=== PATIENT | male | born 1950 | race Caucasian/White ===

== ENCOUNTER 2021-07-17 21:56 | Inpatient (IN) | payer MEDICARE, BC ==
[~2021-07-17] VITALS: Ht 185.4 cm; Wt 129.3 kg
[~2021-07-17 21:56] MED LIST: ALDACTONE50 MG PO; ASPIRIN81 MG PO; CENTRUM SILVER1 EAC1 PO; COQ1050 MG PO; ENTRESTO 49 MG1 EACH PO; LASIX20 MG PO; LEVAQUIN750 MG PO; LOPRESSOR50 MG PO; NEURONTIN800 MG PO; OXCARBAZEPINE300 MG PO; TRILEPTAL300 MG PO; VITAMIN B-121000 MC2 SL; VITAMIN C500 M4 PO; VITAMIN D350 MC3 PO; VITRON-C TABLE1 EACH PO; WARFARIN SODIU2.5 MG PO; WARFARIN SODIUM3 MG PO; XANAX 0.25 MG0.25 MG PO; ZOCOR 40 MG TAB40 MG PO; ZYRTEC10 M3 PO
[2021-07-17 22:49] LABS: HEMOGLOBIN 13.1 gm/dl (14.0-17.5); RED BLOOD COUNT 4.15 M/UL (4.20-5.50); WHITE BLOOD COUNT 10.8 K/UL (4.5-11.0)
[2021-07-17 23:07] LABS: BUN/CREATININE RATIO 12 (0-10)
--- NOTE | 2021-07-18 02:26 | NUR ---
ATTEMPTED TO CONTACT DR GARIBAY X2 IN REGARDS TO PATIENT HOME MEDICATION LIST AND PATIENT VERBALIZED NEED FOR HIS ANXIETY MEDICATION AND TYLENOL. LEFT A VOICE MAIL AND I AM CURRENTLY AWAITING HIS RETURN CALL
[2021-07-18 04:26] LABS: BUN/CREATININE RATIO 12 (0-10)
[2021-07-18 16:02] LABS: BUN/CREATININE RATIO 11 (0-10)
[2021-07-18 22:57] LABS: BUN/CREATININE RATIO 15 (0-10)
[2021-07-19 05:59] LABS: RED BLOOD COUNT 3.86 M/UL (4.20-5.50); WHITE BLOOD COUNT 10.2 K/UL (4.5-11.0)
[2021-07-19 06:14] LABS: BUN/CREATININE RATIO 15 (0-10)
--- NOTE | 2021-07-19 21:08 | NUR ---
PHARMACY CALLED BACK AND STATES THAT THE ONLY SUB WE HAVE FOR ZOCOR IS LIPTIIOR AND PATIENT IS ALLERGIC TO THIS MEDICATION
[2021-07-20 02:12] LABS: HEMOGLOBIN 11.7 gm/dl (14.0-17.5); RED BLOOD COUNT 3.72 M/UL (4.20-5.50); WHITE BLOOD COUNT 7.8 K/UL (4.5-11.0)
[2021-07-20 04:34] LABS: BUN/CREATININE RATIO 18 (0-10)
[2021-07-20] MEDS ORDERED: LEVOFLOXACIN500 MG PO (10:54)
[2021-07-20] MEDS ORDERED: LEVOFLOXACIN750 MG PO (12:32)
== END 2021-07-20 13:03 | disposition home or self-care (01) | DRG 699 ==
LOC: ER1 21:56 → CDU 07-18 00:17 → M/S 07-18 00:17
PROVIDERS: Internal Medicine; Internal Medicine Nephrology; Physician Assistant; Physician Assistant Medical; ADMIT Internal Medicine
DX: N99.521 Infection of incontinent external stoma of urinary tract (principal); N13.6 Pyonephrosis; N30.00 Acute cystitis without hematuria; E87.1 Hypo-osmolality and hyponatremia; I50.32 Chronic diastolic (congestive) heart failure; I48.20 Chronic atrial fibrillation, unspecified; E87.2 Acidosis; Z20.822 Contact with and (suspected) exposure to COVID-19; Y84.6 Urinary catheterization as the cause of abnormal reaction of the patient, or of later complication, without mention of misadventure at the time of the procedure; E16.2 Hypoglycemia, unspecified; D64.9 Anemia, unspecified; E66.9 Obesity, unspecified; B96.1 Klebsiella pneumoniae [K. pneumoniae] as the cause of diseases classified elsewhere; G47.33 Obstructive sleep apnea (adult) (pediatric); I11.0 Hypertensive heart disease with heart failure; I25.10 Atherosclerotic heart disease of native coronary artery without angina pectoris; Z95.1 Presence of aortocoronary bypass graft; Z79.01 Long term (current) use of anticoagulants; Z87.440 Personal history of urinary (tract) infections; Z79.82 Long term (current) use of aspirin; Z93.6 Other artificial openings of urinary tract status; Z85.51 Personal history of malignant neoplasm of bladder; Z88.1 Allergy status to other antibiotic agents; Z80.1 Family history of malignant neoplasm of trachea, bronchus and lung; Z87.891 Personal history of nicotine dependence; Z68.37 Body mass index [BMI] 37.0-37.9, adult; Z95.0 Presence of cardiac pacemaker; Z95.2 Presence of prosthetic heart valve; Z88.0 Allergy status to penicillin; Z88.8 Allergy status to other drugs, medicaments and biological substances
CPT/HCPCS: 36415; 80048; 80053; 81001; 82140; 82436; 82533; 82550; 82553; 82607; 82728; 82746; 83036; 83540; 83550; 83605; 83735; 83880; 83930; 83935; 84100; 84133; 84295; 84300; 84439; 84443; 84484; 84550; 85025; 85027; 85610; 86140; 87040; 87077; 87086; 87186; 97116-GP-CQ; 97161; 97165; 99285; J0696; J2185; J2405; U0002